=== PATIENT | male | born 1965 | race Caucasian/White ===

== ENCOUNTER 2023-09-24 08:28 | Emergency (ER) | payer OTHER ==
[~2023-09-24] VITALS: Ht 182.8 cm; Wt 72.6 kg
[2023-09-24] MEDS ORDERED: CEPHALEXIN500 M1 PO (15:09)
== END 2023-09-24 15:27 | disposition home or self-care (01) ==
LOC: ED 08:28
DX: S61.210A Laceration without foreign body of right index finger without damage to nail, initial encounter (principal); S00.211A Abrasion of right eyelid and periocular area, initial encounter; Z88.1 Allergy status to other antibiotic agents; L03.113 Cellulitis of right upper limb; W19.XXXA Unspecified fall, initial encounter; Y93.89 Activity, other specified; Y92.89 Other specified places as the place of occurrence of the external cause; Y99.8 Other external cause status